=== PATIENT | male | born 1980 | race Two or more races ===

== ENCOUNTER 2021-11-06 18:48 | Emergency (ER) | payer MEDICAID ==
[~2021-11-06] VITALS: Ht 175.3 cm; Wt 80.0 kg
[2021-11-06] MEDS ORDERED: PROPARACAINE HCL 0.5% 15 ML OPHTHALMIC SOLUTION OD ONE (20:30)
[2021-11-06] MEDS ORDERED: FLUORESCEIN SODIUM 1 MG STRIP OU ONE (20:30)
[2021-11-06] MEDS ORDERED: ERYTHROMYCIN 0.5% 3.5 GM TUBE OPHTHALMIC OINTMENT OS ONE (20:45)
[2021-11-06 21:35] VITALS: BP 130/84
== END 2021-11-06 21:52 | disposition home or self-care (01) ==
LOC: EMS 18:48
DX: T15.12XA Foreign body in conjunctival sac, left eye, initial encounter (principal); X58.XXXA Exposure to other specified factors, initial encounter; Y93.89 Activity, other specified; Y92.89 Other specified places as the place of occurrence of the external cause; Y99.0 Civilian activity done for income or pay
CPT/HCPCS: 99284; J9035; Z7502; Z7610